=== PATIENT | male | born 1960 | race Caucasian/White ===

== ENCOUNTER → 2023-06-05 14:04 | Outpatient (REF) | payer OTHER, SELFPAY | LOC: MRI 3T 14:04 | PROVIDERS: ATTENDING PHYSICIAN Physical Medicine & Rehabilitation; FAMILY PHYSICIAN Family Medicine | DX: M54.16 Radiculopathy, lumbar region (principal) | CPT/HCPCS: 70030; 72148 ==

== ENCOUNTER 2024-04-28 13:36 | Inpatient (IN) | payer MEDICARE, SELFPAY ==
[2024-04-28 09:31] VITALS: BMI 35.4
[2024-04-28 09:32] VITALS: BP 186/108
--- NOTE | 2024-04-28 10:39 | ED.GENMED ---
History of Present Illness
General
Chief Complaint: Abdominal Pain
Source: patient
Exam Limitations: none
Time Seen by Provider: 04/28/24 10:27
History of Present Illness
History of Present Illness:
63-year-old male presents complaining of onset of epigastric abdominal pain with belching starting last evening. This is persistent and not going away. He has had similar attack of this in the past and typically goes away with antacids or Tums.
He has a known hiatal hernia. He is followed by GI. The pain does not radiate to the back. He denies chest pain. No shortness of breath. He notes last several bowel movements have been very light and almost white in color. He notes
dark-colored urine.
Phy Exam
Physical Exam
Physical Exam:
General: Well-appearing male no acute respiratory distress
HEENT: Normocephalic atraumatic
Heart: Regular rate and rhythm
Lungs: Clear no wheeze
Abdomen soft mild guarding tender to the epigastric and right upper quadrants. Positive Quiñonez sign normal bowel sounds nondistended
Skin: Slightly jaundiced.
Extremities: No cyanosis
Course
Orders/Labs/Results
Orders:
Orders
04/28/24 09:37
Electrocardiogram (*1) Urgent
Reason for Study: Chest Pain
EKG- Treatment ONCE
04/28/24 10:38
US Abdomen Complete/Upper Urgent
Comment:
Reason For Exam: RUQ pain
04/28/24 10:40
CMP [Comprehensive Metabolic Panel] Urgent
Complete Blood Count/With Diff Urgent
Lipase Urgent
Troponin I Urgent
Urinalysis Reflex To Culture Urgent
Date Specimen was Collected: 04/28/24
Time Specimen was Collected: 10:27
Urine Microscopic Reflex Cult Urgent
04/28/24 12:25
0.9% Sodium Chloride 1000 ml [Nss] 1,000 ml IV BOLUS
Ketorolac [Toradol] 15 mg IV NOW STA
Piperacillin/Tazo 3.375 Gram [Zosyn] 3.375 gram in 50 ml IV NOW
Abnormal Lab Results
04/28/24
10:40
WBC 13.5 H 10^3/uL
(4.8-10.8)
Abs Immat Gran (auto) 0.1 H 10^3/uL
(0-0.05)
Absolute Neuts (auto) 12.2 H 10^3/uL
(1.4-6.5)
Absolute Lymphs (auto) 0.5 L 10^3/uL
(1.2-3.4)
Absolute Monos (auto) 0.7 H 10^3/uL
(0.1-0.6)
Neutrophils % 90.6 H %
(42.2-75.2)
Lymphocytes % 3.9 L %
(20.5-51.1)
Sodium 133 L mmol/L
(135-145)
Chloride 95 L mmol/L
(98-107)
Glucose 147 H mg/dl
(70-99)
Total Bilirubin 2.9 H mg/dl
(0.2-1.3)
AST 108 H U/L
(17-59)
ALT 138 H U/L
(0-50)
Urine Ketones 2+ A
(Negative)
Ur Occult Blood Reflex 2+ A
(Negative)
Urine Bilirubin 1+ A
(Negative)
Urine RBC 7-10 A /HPF
(0-2)
Urine Glucose 1+ A
(Negative)
04/28/24 10:40
04/28/24 10:40
Vital Signs
Initial and Last Documented VS:
Initial Vital Signs
Temp Pulse Resp BP Pulse Ox
98 F 100 20 186/108 98
04/28/24 09:32 04/28/24 09:32 04/28/24 09:32 04/28/24 09:32 04/28/24 09:32
Last Documented Vital Signs
Temp Pulse Resp BP Pulse Ox
98 F 86 20 186/108 97
04/28/24 09:32 04/28/24 10:45 04/28/24 10:45 04/28/24 09:32 04/28/24 10:45
MDM/Problems Addressed
Differential Diagnosis Includes:
Abdominal pain. Gastritis vs biliary colic vs pancreatitis bowel obstruction and others
Check labs. Start with US. Consider CT if US is negative.
*Critical Care Note
Total Time (30-74mins, 75-104mins- exclusive of procedures): Not Applicable
Update Note
Update Note:
Ultrasound demonstrates 3 mm stone in the gallbladder. Labs reviewed white blood cell count 13.5 he has elevated liver functions with a total bilirubin of 2.9 ALT of 108 and AST of 138. Patient still uncomfortable. Toradol and fluids ordered
Zosyn ordered to cover. Will admit to hospitalist but notified GI and general surgery as well. Concern for cholecystitis versus cholangitis
EKG sinus rhythm with a rate of 94
. No ischemic changes.
ED Attending Note
-
Portions of this chart may have been created with voice recognition software.� Occasional wrong word or��sound alike� substitutions may have occurred due to the inherent limitations of voice recognition software.
Discharge Plan
Departure
Patient Disposition: Admit
Date of Disposition: 04/28/24
Time of Disposition: 12:27
Presentation/result/management discussed w/ accepting MD/DO: Hospitalist
Discharge Problem:
Cholelithiasis
Prescriptions:
No Action
amlodipine 10 MG tablet
10 mg PO DAILY
rosuvastatin 10 MG tablet
10 mg PO QPM
Referrals:
Sterling Jeffers DO [Family Provider] -
Interventions
Interventions:
*Risk Screen - Suicide Last Done: 04/28/24 09:32
*General Assessment Last Done: 04/28/24 09:32
*Neglect/Abuse Screening Last Done: 04/28/24 09:32
ED- Fall Risk Assessment Last Done: 04/28/24 10:50
*ED COVID-19 Vaccine History Last Done: 04/28/24 10:48
CV-Biopid-Xpuntonuol Assessment Last Done: 04/28/24 10:48
Discharge Date and Time
Print Language: CZECH
[2024-04-28 10:49] LABS: % Basophils 0.1 % (0-2); % Immature Granulocytes 0.4 % (0-0.5); % Lymphocytes 3.9 % (20.5-51.1); % Neutrophils 90.6 % (42.2-75.2); Absolute Immature Granulocytes 0.1 10^3/uL (0-0.05); Absolute Lymphocytes 0.5 10^3/uL (1.2-3.4); Absolute Monocytes 0.7 10^3/uL (0.1-0.6); Absolute Neutrophils 12.2 10^3/uL (1.4-6.5); Hemoglobin 15.1 g/dL (13.0-18.0); Mean Corp Hgb Conc. 34.3 g/dL (33.0-37.0); Mean Corpuscular Hgb 29.1 pg (27.0-31.0); Mean Corpuscular Volume 84.8 fL (80.0-94.0); Mean Platelet Volume 9.8 fL (7.4-10.4); Nucleated Red Blood Cells % 0 % (-); Platelet Count 220 10^3/uL (130-400); Red Blood Cell Count 5.19 10^6/uL (4.70-6.10); Red Cell Dist. Width 12.7 % (11.5-14.5); White Blood Cell Count 13.5 10^3/uL (4.8-10.8)
[2024-04-28 11:08] LABS: Urine Albumin Trace (Neg - Trace); Urine Bilirubin 1+ (Negative); Urine Character Clear (Clear); Urine Color Amber; Urine Glucose 1+ (Negative); Urine Ketone 2+ (Negative); Urine Leukocyte Negative (Negative); Urine Nitrite Negative (Negative); Urine Occult Blood 2+ (Negative); Urine Urobilinogen Negative (Neg - 1+)
[2024-04-28 11:17] LABS: ALT (SGPT) 138 U/L (0-50); AST (SGOT) 108 U/L (17-59); Albumin 4.7 g/dl (3.5-5.0); Alkaline Phosphatase 106 U/L (38-126); Blood Urea Nitrogen 14 mg/dl (9-20); Calcium 8.6 mg/dl (8.4-10.2); Carbon Dioxide 26 mmol/L (22-30); Chloride 95 mmol/L (98-107); Estimated Creatinine Clearance 106 ml/min; Glucose 147 mg/dl (70-99); Lipase 57 U/L (23-300); Potassium 3.9 mmol/L (3.5-5.1); Sodium 133 mmol/L (135-145); Total Bilirubin 2.9 mg/dl (0.2-1.3); Total Protein 7.8 g/dl (6.3-8.2); eGFR > 60.00
[2024-04-28 11:27] LABS: Troponin I < 0.012 ng/ml
[2024-04-28 11:41] LABS: Urine Squamous Cell 0-2 /LPF (Few); Urine White Cell 0-2 /HPF (0-5)
--- NOTE | 2024-04-28 12:43 | HPS.HSE ---
Family Physician
-
Family Physician: Sterling Jeffers
Chief Complaint
-
Abdominal Pain
History of Present Illness
Patient is a 63 y/o male past medical history of hypertension, hyperlipidemia and thyroid cancer s/p thyroidectomy who presents with abdominal pain. Patient reports pain started yesterday afternoon located mostly in the epigastric region. He
reports similar episodes of pain for which he would usually take an antacid with improvement, but this time pain did not improve and continued to worse. He reports associated nausea and vomiting. He reports subjective fevers of sweats and chills
at home.
Medical History
Past Medical History
Past Medical History: Reports Other
Additional Past Medical History:
Essential Hypertension
Hyperlipidemia
Thyroid Cancer
Past Surgical History: Reports Other
Additional Past Surgical History:
Left Total Knee Replacement
Total Thyroidectomy
Social History
Tobacco: Non-smoker
Alcohol: Occasional
Family History
Family History: Not pertinent
Allergies / Home Medications
Allergies reflects when Allergies were last updated in [facility].
Home Medications with original date entered in [facility]
Allergy/Medication List:
Allergies
Allergy/AdvReac Type Severity Reaction Status Date / Time
No Known Allergies Allergy Verified 04/28/24 09:36
Home Medications
amlodipine 5 mg tablet 5 mg PO QPM 04/28/24
celecoxib 200 mg capsule (Celebrex) 200 mg PO DAILYPRN PRN back pain 04/28/24
famotidine 20 mg tablet (Pepcid) 20 mg PO HSPRN PRN ACID REFLUX 04/28/24
levothyroxine 175 mcg tablet (Synthroid) 175 mcg PO DAILY 04/28/24
omeprazole 40 mg capsule,delayed release 40 mg PO DAILY 04/28/24
pravastatin 40 mg tablet 40 mg PO QPM 04/28/24
psyllium 1 packet PO DAILY 04/28/24
Review of Systems
-
A 12 point ROS was completed and negative except as noted: Yes
Constitutional: Reports Chills
Respiratory: Denies Cough or Trouble Breathing
Cardiac: Denies Chest Pain or Palpitations
Abdomen/GI: Reports See HPI
Physical Exam
Vital Signs
Vital Signs
Temp Pulse Resp BP Pulse Ox
98 F 86 20 186/108 97
04/28/24 09:32 04/28/24 10:45 04/28/24 10:45 04/28/24 09:32 04/28/24 10:45
Physical Exam
General: Comfortable and Conversant
HEENT: Moist mucous membranes and Other (Mild scleral icterus )
Respiratory: Clear and Non Labored Respirations
Cardiac: S1/S2 and Regular Rhythm
GI: Soft and Tender (RUQ without rebound or guarding)
Rectal: Deferred by Provider
Musculoskeletal: No Clubbing, No Cyanosis and No Edema
Skin: Warm, Dry and Jaundice
Neuro: Awake, Alert, Oriented and Nonfocal/grossly intact
Psych: Calm
Laboratory Results
-
04/28/24 10:40
04/28/24 10:40
Laboratory Results
Total Bilirubin 2.9 mg/dl (0.2-1.3) H 04/28/24 10:40
AST 108 U/L (17-59) H 04/28/24 10:40
ALT 138 U/L (0-50) H 04/28/24 10:40
Alkaline Phosphatase 106 U/L (38-126) 04/28/24 10:40
Troponin I < 0.012 ng/ml 04/28/24 10:40
Lipase 57 U/L (23-300) 04/28/24 10:40
Data Reviewed
-
Ultrasound: Report Reviewed by me
Lab Data: Labs Reviewed by me
Impression/Plan
-
Sepsis likely secondary to Choledocholithiasis / Ascending Cholangitis
-Consult General Surgery and Gastroenterology
-Trend LFTs - Consider MRI
-Check blood cultures
-Continue Zosyn
-Continue NPO/IVFs
-Continue anti-emetics and pain control
Essential Hypertension
-Continue amlodipine with hold parameters
Hyperlipidemia
-Hold statin
Hx Thyroid CA s/p Thyroidectomy
-Continue levothyroxine
DVT proph: SCDs
Code Status: Full Code
--- NOTE | 2024-04-28 12:46 | W.PN.UPDATE ---
Update Note
Progress Note Update
This is an addendum to the H&P written by Lashay Farias on 04/28/2024. Patient seen and examined independently with PA.
63-year-old male past medical history of hypertension, hyperlipidemia, hiatal hernia presenting with persistent epigastric abdominal pain with belching starting last evening. Patient has similar episodes previously which were typically resolves
with antacids. Has had several bowel movements right white-colored and dark-colored urine.
Patient hypertensive blood pressure 186/108.
Labs show leukocytosis as well as transaminitis with bilirubin of 2.9.
Abdominal ultrasound shows cholelithiasis with large calculi measuring up to 3 cm., diffuse fatty infiltration of the liver. Common bile duct measures 4.5 mm.
Concern for biliary colic and concurrent choledocholithiasis. Monitor LFTs. Pain control, n.p.o., IV fluids, Zosyn, GI, general surgery consulted. Consider MRCP.
[2024-04-28] MEDS: NSS 1000 IV ×2 (12:48→17:23)
[2024-04-28] MEDS: ZOSYN 50 IV ×2 (12:49→17:22)
[2024-04-28] MEDS: TORADOL 15 MG IV ×2 (12:49→21:35)
[2024-04-28 13:00] VITALS: BP 166/86
--- NOTE | 2024-04-28 13:30 | CON.GI ---
Addendum entered and electronically signed by Katharine Martinez DO 04/28/24 16:33:
The patient was seen and examined by me independently in collaboration with the nurse practitioner.
Past medical history/social history/medications/allergies/family history reviewed.
Lab data and imaging data reviewed.
Briefly, Daniel Arreaga is a 63 y.o. male w/ pmhc HLD, thyroid ca s/p thyroidectomy, TKR who presents with epigastric pain and eructation with subjective fever/chills. Labs demonstrate a leukocytosis of 13.5K and elevated LFTs, AST 108, ALT 138, alk
phos 106, Dbili 2.9. Abdominal US shows cholelithiasis w/o evidence of cholecystitis or choledocholithiasis; hepatic steatosis and 3.5 cm parapelvic renal cyst. He was started on zosyn. No documented fever since arrival. Of note, similar symptoms
intermittently over the last year, but also had associated diarrhea. He had initial improvement with PPI but sometimes required Gaviscon and tums for breakthrough symptoms.
Agree with plan as outlined below. Will await MRCP to evaluate for choledocho and if evidence of CBD stone will tentatively plan for ERCP tomorrow. If negative for choledocho, plan for lap taylor, timing per surgery.
Original Note:
Consultation
-
Date/Time Consultation Requested: 04/28/24 1245
Date/Time Consultation Performed: 04/28/24 1330
Requesting Provider: Michael Terry PA-C
Performing Provider: INGRID Engle, Isadora Martinez DO
Reason for Consultation: RUQ pain
Medical History
Chief Complaint / HPI
Chief Complaint: abdominal pain
History of Present Illness:
Pt is a 63yo with hx HTN, hyperlipidemia, thyroid Ca with thyroidectomy, TKR with onset of abdominal pain and belching. Pt also reports fever and chills with onset. On admission noted with WBC 13,500, bili 2.9, AST 108, ALT 138 alk phos 106.
04/28 US abdomen cholelithiasis, fatty infiltration of liver and 3.5 cm parapelvic renal cyst. In review with patient he has had similar symptoms for last year and a half but this was most severe episode. Episode occur at variable times of day
without a pattern. Now also noted with dark urine and dark urine. He typically will have improvement with Gaviscon or tums and though symptoms may be hiatal hernia related.
Past Medical History
Past Medical History: Cancer (thyroid CA), HTN and Hypercholesterolemia
Past Surgical History: Orthopedic (TKR) and Other (thyroidectomy)
Social History
Tobacco: Non-Smoker
Alcohol: Occasional (on weekends )
Drug: None
Personal:
Living: With Family
Employment: Employed
Family History
Family History: Other (no family hx GI issues )
Allergies / Home Medications
Allergy/AdvReac Type Severity Reaction Status Date / Time
No Known Allergies Allergy Verified 04/28/24 09:36
�Medication �Instructions �Recorded
amlodipine 5 mg tablet 5 mg PO QPM 04/28/24
celecoxib 200 mg capsule (Celebrex) 200 mg PO DAILYPRN PRN back pain 04/28/24
famotidine 20 mg tablet (Pepcid) 20 mg PO HSPRN PRN ACID REFLUX 04/28/24
levothyroxine 175 mcg tablet 175 mcg PO DAILY 04/28/24
(Synthroid)
omeprazole 40 mg capsule,delayed 40 mg PO DAILY 04/28/24
release
pravastatin 40 mg tablet 40 mg PO QPM 04/28/24
psyllium 1 packet PO DAILY 04/28/24
Review of Systems
-
History Source: Patient and Family
Constitutional: Reports No Symptoms
EENT: Reports No Symptoms
Respiratory: Reports No Symptoms
Cardiac: Reports Chest Pain
Abdomen/GI: Reports Abdominal Pain, Nausea, Vomiting and Other (bryant stool)
: Reports Dark Urine
Musculoskeletal: Reports No Symptoms
Skin: Reports No Symptoms
Neurological: Reports Weakness
Endocrine: Reports No Symptoms
Hematologic/Lymphatic: Reports No Symptoms
Vital Signs
Temp Pulse Resp BP Pulse Ox
98 F 86 15 166/86 97
04/28/24 09:32 04/28/24 13:00 04/28/24 13:08 04/28/24 13:00 04/28/24 13:00
Physical Exam
Exam
General: Well Developed, Well Nourished and No Apparent Distress
HEENT: Normocephalic and Anicteric
Respiratory: Clear
Cardiac: Regular Rhythm
GI: Soft, Non Distended and Tender (epigastric and left upper quadrant )
Musculoskeletal: No Clubbing and No Cyanosis
Skin: Warm and Dry
Neuro: Awake, Alert and AO x 3
Psych: Calm
Results
WBC 13.5 10^3/uL (4.8-10.8) H 04/28/24 10:40
Hgb 15.1 g/dL (13.0-18.0) 04/28/24 10:40
Hct 44.0 % (39.0-52.0) 04/28/24 10:40
MCV 84.8 fL (80.0-94.0) 04/28/24 10:40
Plt Count 220 10^3/uL (130-400) 04/28/24 10:40
Absolute Neuts (auto) 12.2 10^3/uL (1.4-6.5) H 04/28/24 10:40
Sodium 133 mmol/L (135-145) L 04/28/24 10:40
Potassium 3.9 mmol/L (3.5-5.1) 04/28/24 10:40
Chloride 95 mmol/L (98-107) L 04/28/24 10:40
Carbon Dioxide 26 mmol/L (22-30) 04/28/24 10:40
BUN 14 mg/dl (9-20) 04/28/24 10:40
Creatinine 0.9 mg/dL (0.7-1.3) 04/28/24 10:40
Calcium 8.6 mg/dl (8.4-10.2) 04/28/24 10:40
Total Bilirubin 2.9 mg/dl (0.2-1.3) H 04/28/24 10:40
AST 108 U/L (17-59) H 04/28/24 10:40
ALT 138 U/L (0-50) H 04/28/24 10:40
Alkaline Phosphatase 106 U/L (38-126) 04/28/24 10:40
Lipase 57 U/L (23-300) 04/28/24 10:40
Diagnostic Image Results:
04/28/24 US abdomen
Cholelithiasis
Diffuse fatty infiltration of the liver
3.5 cm left parapelvic renal cyst
Prior GI Procedures:
EGD: 01/2023- - Normal esophagus.
- Z-line irregular, 39 cm from the incisors. Biopsied.
- 1 cm hiatal hernia.
- Erythematous mucosa in the stomach. Biopsied.
- A few gastric polyps. Biopsied.
- Normal. Biopsied.
- Biopsies were taken with a cold forceps for
evaluation of eosinophilic esophagitis.
bx neg
Colonoscopy: 09/2018 - - Diverticulosis in the sigmoid colon and in the
descending colon.
- The examination was otherwise normal.
- No specimens collected.
Assessment / Plan
-
Pt is a 63yo with hx HTN, hyperlipidemia, thyroid Ca with thyroidectomy, TKR with onset of abdominal pain and belching. On admission noted with WBC 13,500, bili 2.9, AST 108, ALT 138 alk phos 106. 04/28 US abdomen cholelithiasis, fatty
infiltration of liver and 3.5 cm parapelvic renal cyst. Pt was noted with fever/chills prior to admission.
-epigastric abdominal pain
-increased LFT's
-leukocytosis/fever with concern for sepsis on admission
-cholelithiasis
other med problems:
-diverticulosis
-gastric polyp
-HTN
-hyperlipidemia
-thyroid CA with thyroidectomy
-HH
-TKR
PLAN:
etiology of abdominal pain with fever and LFT elevation related to biliary colic, CBD stone, vs other
US as noted
will check MRI with MRCP
for surgical eval
trend labs
blood cx pending to be done
cont abx
updated family at bedside
-
-
Thank you for consultation and allowing me to participate in the patient's care. Please call the environmental engineering professor GI physician during the after hours with any questions or concerns.
[2024-04-28 15:00] VITALS: BP 157/66
[2024-04-28 15:35] VITALS: BP 157/103; BMI 35.9
--- NOTE | 2024-04-28 15:38 | TRANSFER ---
Pt admitted to 317-1 from ED. Walked from stretcher to bed. AAOx3, accompanied by . NSS running, VSS, admission complete by this RN. No complaints at this time, call juarez within reach.
--- NOTE | 2024-04-28 16:23 | CON.GS ---
Medical History
-
Chief Complaint: Epigastric abdominal pain
History of Present Illness:
Patient is a 63 yo M with a PMH of obesity, GERD, HTN, HLD, thyroid cancer s/p total thyroidectomy with iodine radiation complicated by recurrence within the lymph nodes s/p lymphadenectomy, and s/p LEFT TKR who presents to the hospital with
epigastric abdominal pain. History Gibson states that his symptoms began Saturday afternoon. He noted a general unwell feeling as well as a mild fever. He also notes epigastric discomfort which worsened on Saturday. Symptoms progressed bring
presentation to the ED. He has had intermittent epigastric discomfort previously on an almost monthly basis which she is attributed to GERD related symptoms. This previous attacks would improve with Tums and Gaviscon. His current episode did not
improve with medical management. No nausea or vomiting. He does note pale stools and dark urine. Denies any jaundice. Family history notable for a mother and father postcholecystectomy.
Past Medical History
Past Medical History: Cancer (Thyroid cancer), GERD, HTN, Hypercholesterolemia and Other (Obesity)
Past Surgical History: Orthopedic (LEFT TKR) and Other (Total thyroidectomy and lymphadenectomy)
Social History
Tobacco: Non-Smoker
Alcohol: Occasional
Drug: None
Personal:
Living: With Family
Family History
Family History: Other (Mother and father postcholecystectomy)
Allergies / Home Medications
Allergy/AdvReac Type Severity Reaction Status Date / Time
No Known Allergies Allergy Verified 04/28/24 09:36
�Medication �Instructions �Recorded �Confirmed �Type
amlodipine 5 mg tablet 5 mg PO QPM Blood Pressure 04/28/24 04/28/24 History
celecoxib 200 mg capsule (Celebrex) 200 mg PO DAILYPRN PRN back pain 04/28/24 04/28/24 History
famotidine 20 mg tablet (Pepcid) 20 mg PO HSPRN PRN ACID REFLUX 04/28/24 04/28/24 History
levothyroxine 175 mcg tablet 175 mcg PO DAILY Thyroid 04/28/24 04/28/24 History
(Synthroid)
omeprazole 40 mg capsule,delayed 40 mg PO DAILY Gastrointestinal 04/28/24 04/28/24 History
release Issue
pravastatin 40 mg tablet 40 mg PO QPM High Cholesterol 04/28/24 04/28/24 History
psyllium 1 packet PO DAILY Constipation 04/28/24 04/28/24 History
Review of Systems
-
A 10 point review of systems was completed, and was negative except as per HPI.
Physical Exam
Vital Signs
Temp Pulse Resp BP Pulse Ox
98.0 F 99 18 157/103 98
04/28/24 15:35 04/28/24 15:35 04/28/24 15:35 04/28/24 15:35 04/28/24 15:35
04/27/24 04/28/24 04/29/24
06:59 06:59 06:59
Actual Weight 116.687 kg
Body Mass Index (BMI) 35.9
Lab Results
04/28/24 10:40
04/28/24 10:40
WBC 13.5 10^3/uL (4.8-10.8) H 04/28/24 10:40
Hgb 15.1 g/dL (13.0-18.0) 04/28/24 10:40
Hct 44.0 % (39.0-52.0) 04/28/24 10:40
Plt Count 220 10^3/uL (130-400) 04/28/24 10:40
Abs Immat Gran (auto) 0.1 10^3/uL (0-0.05) H 04/28/24 10:40
Neutrophils % 90.6 % (42.2-75.2) H 04/28/24 10:40
Physical Exam
General: Well Developed, Well Nourished and No Apparent Distress
HEENT: Scleral Icterus
Respiratory: Non Labored Respirations
Cardiac: Regular Rhythm
GI: Soft, Tender (Epigastric, negative Quiñonez's sign), Obese and Other ((No diffuse peritonitis)
Musculoskeletal: No Edema
Skin: Warm and Dry
Neuro: Nonfocal/Grossly Intact
Data Reviewed
-
Ultrasound: Image Personally Visualized and interpreted and Report Reviewed by me
Labs: Labs Reviewed by me
Assessment / Plan
-
Patient is a 63 yo M p/w likely choledocholithiasis
Natural history and pathophysiology of biliary and stone disease was discussed. Anatomy was reviewed utilizing pictorial images. Workup thus far including ultrasound and labs were reviewed. Role of cholecystectomy in preventing future episodes of
cholecystitis or choledocholithiasis was discussed. GI consult noted. MRI pending. Timing of cholecystectomy pending above-noted workup. All questions answered.
-- MRI abdomen
-- NPO, IVF
-- Abx: Zosyn
-- Timing of cholecystectomy TBD
[2024-04-28] MEDS: PRAVACHOL 40 MG PO (17:23)
[2024-04-28] MEDS: NORVASC 5 MG PO (17:24)
--- NOTE | 2024-04-28 18:41 | PTCARENOTE ---
pt received from ED with at bedside. Walked to bed with minimal assistance. AAOx3. VSS. Pt and very pleasant. NPO status at this time. Pt said last dose of toradol brought pain to a 06/22. Call juarez within reach, no complaints at this time.
[2024-04-28 23:00] VITALS: BP 138/83
[2024-04-29] MEDS: ZOSYN 50 IV ×5 (00:01→23:28)
[2024-04-29] MEDS: NSS 1000 IV ×3 (00:02→23:28)
[2024-04-29] MEDS: SYNTHROID 175 MCG PO (05:13)
[2024-04-29 07:01] LABS: Hematocrit 40.8 % (39.0-52.0); Hemoglobin 14.3 g/dL (13.0-18.0); Mean Corpuscular Hgb 29.4 pg (27.0-31.0); Mean Corpuscular Volume 83.8 fL (80.0-94.0); Mean Platelet Volume 9.7 fL (7.4-10.4); Platelet Count 204 10^3/uL (130-400); Red Blood Cell Count 4.87 10^6/uL (4.70-6.10); Red Cell Dist. Width 12.8 % (11.5-14.5); White Blood Cell Count 16.2 10^3/uL (4.8-10.8)
[2024-04-29 07:11] LABS: ALT (SGPT) 80 U/L (0-50); AST (SGOT) 46 U/L (17-59); Albumin 3.7 g/dl (3.5-5.0); Alkaline Phosphatase 90 U/L (38-126); Blood Urea Nitrogen 16 mg/dl (9-20); Calcium 8.2 mg/dl (8.4-10.2); Carbon Dioxide 20 mmol/L (22-30); Chloride 101 mmol/L (98-107); Estimated Creatinine Clearance 80 ml/min; Glucose 103 mg/dl (70-99); Magnesium 1.9 mg/dl (1.6-2.3); Potassium 3.5 mmol/L (3.5-5.1); Sodium 134 mmol/L (135-145); Total Bilirubin 3.3 mg/dl (0.2-1.3); Total Protein 6.5 g/dl (6.3-8.2); eGFR > 60.00
[2024-04-29 07:34] VITALS: BP 138/88
[2024-04-29] MEDS: PROTONIX 40 MG PO (08:11)
[2024-04-29 08:58] LABS: Glycohemoglobin (HgbA1c) 5.5 % (4.0-5.6)
--- NOTE | 2024-04-29 09:40 | W.PN.UPDATE ---
Update Note
Progress Note Update
Attempted to see pt, off floor for MRI
--- NOTE | 2024-04-29 10:28 | W.PN.HOSP.TC ---
Addendum entered and electronically signed by Reece Riojas MD 04/29/24 14:22:
Addendum
Hyponatremia, mild
MRI result reviewed, common bile duct filling defect. GI recommending ERCP prior to cholecystectomy. Continue with IV antibiotics for now.
End
Original Note:
Today's Communication/Plan
-
IV abx
IVF
MRI
f/w surgery recommendations for surgery
Assessment / Plan
Assessment / Plan
Physical Exam
General: Comfortable and Conversant
HEENT: Moist mucous membranes, no deformity.
Respiratory: Clear and Non Labored Respirations
Cardiac: S1/S2 and Regular Rhythm
GI: Soft and Tender (RUQ)
Rectal: No bleeding.
Musculoskeletal: No Clubbing, No Cyanosis and No Edema
Skin: Warm, Dry and Jaundice
Neuro: Awake, Alert, Oriented and Nonfocal/grossly intact
Psych: Calm
# Sepsis( leukocytosis, fever, tachycardia) secondary to Choledocholithiasis / Ascending Cholangitis
His pain is less with IV Abx
Liver enzymes are coming down, still with some discomfort and RUQ tenderness.
for MRI, talked to tech to facilitate it
-f/w blood cultures
-Continue Zosyn
-Continue NPO/IVFs
-Continue anti-emetics and pain control
Appreciate General Surgery and Gastroenterology
Essential Hypertension
-Continue amlodipine with hold parameters
Hyperlipidemia
-Hold statin
Hx Thyroid CA s/p Thyroidectomy
-Continue levothyroxine
DVT proph: SCDs
Code Status: Full Code
Total time spent to see the patient, examine the patient, review data and lab results, discuss treatment plan with patient, GI doctor, nursing staff around 55 minutes.
Anticipated Discharge: > 48 hours
Subjective/Interval History
-
Date of Service: April 29, 2024
less abdominal pain
conveyor tender RUQ of abdomen, no nausea
Objective Data
-
Labs:
Laboratory Results
04/29/24
06:13
WBC 16.2 H
Hgb 14.3
Hct 40.8
Plt Count 204
Sodium 134 L
Potassium 3.5
Chloride 101
Carbon Dioxide 20 L
BUN 16
Creatinine 1.2
Glucose 103 H
Calcium 8.2 L
Total Bilirubin 3.3 H
AST 46
ALT 80 H
Alkaline Phosphatase 90
Vital Signs:
Vital Signs
Temp Pulse Resp BP Pulse Ox
98.0 F 105 17 138/88 95
04/29/24 07:34 04/29/24 07:34 04/29/24 07:34 04/29/24 07:34 04/29/24 07:34
I&O
04/28/24 04/29/24 04/30/24
06:59 06:59 06:59
Intake Total 1580 / 1580
Balance 1580 / 1580
--- NOTE | 2024-04-29 10:46 | W.PN.GI.CBS2 ---
Addendum entered and electronically signed by Katharine Martinez DO 04/29/24 12:06:
The patient was seen and examined by me independently in collaboration with the nurse practitioner.
Past medical history/social history/medications/allergies/family history reviewed.
Lab data and imaging data reviewed.
Patient seen in follow-up, reports significant improvement in pain. MRI/MRCP completed following my exam which demonstrates numerous tiny filling defects within the mid to distal common bile duct spanning over approximately 3 cm in length,
consistent with choledocholithiasis as well as several stones in the neck including within GB neck with associated pericholecystic fluid, c/w acute cholecystitis. Worsening leukocytosis of 16K, afebrile and otherwise hemodynamically stable.
A/P:
-c/w antibiotics
-NPO
-Tentative plans for ERCP today-- pending available doctor to perform procedure
Original Note:
Today's Communication / Plan
-
etiology of abdominal pain with fever and LFT elevation related to biliary colic, CBD stone, vs other
and some rise in WBC with low grade fever overnight but pain with some improvement
US as noted
MRI with MRCP completed await result
cont NPO til reviewed
if + stone then ERCP- timing to be determined
appreciate surgical eval
trend labs-- till with elevated bili/ALT
blood cx pending
cont abx
Assessment / Plan
-
Pt is a 63yo with hx HTN, hyperlipidemia, thyroid Ca with thyroidectomy, TKR with onset of abdominal pain and belching. On admission noted with WBC 13,500, bili 2.9, AST 108, ALT 138 alk phos 106. 1/14 US abdomen cholelithiasis, fatty
infiltration of liver and 3.5 cm parapelvic renal cyst. Pt was noted with fever/chills prior to admission.
-epigastric abdominal pain
-increased LFT's
-leukocytosis/fever with concern for sepsis on admission
-cholelithiasis
other med problems:
-diverticulosis
-gastric polyp
-HTN
-hyperlipidemia
-thyroid CA with thyroidectomy
-HH
-TKR
PLAN:
etiology of abdominal pain with fever and LFT elevation related to biliary colic, CBD stone, vs other
and some rise in WBC with low grade fever overnight but pain with some improvement
US as noted
MRI with MRCP completed await result
cont NPO til reviewed
if + stone then ERCP- timing to be determined
appreciate surgical eval
trend labs-- till with elevated bili/ALT
blood cx pending
cont abx
Subjective
Subjective
Date of Service: April 29, 2024
T max 100.3 overnight, NPO, just completed MRI, pain improved but still noted with palpation
Objective
Data Reviewed
Laboratory Data:
Laboratory Results
04/29/24 06:13
04/29/24 06:13
Laboratory Results
Magnesium 1.9 mg/dl (1.6-2.3) 04/29/24 06:13
Total Bilirubin 3.3 mg/dl (0.2-1.3) H 04/29/24 06:13
AST 46 U/L (17-59) 04/29/24 06:13
ALT 80 U/L (0-50) H 04/29/24 06:13
Alkaline Phosphatase 90 U/L (38-126) 04/29/24 06:13
Lipase 57 U/L (23-300) 04/28/24 10:40
Vital Signs and I&O:
Vital Signs
Temp Pulse Resp BP Pulse Ox
98.0 F 105 17 138/88 95
04/29/24 07:34 04/29/24 07:34 04/29/24 07:34 04/29/24 07:34 04/29/24 07:34
I&O
04/28/24 04/29/2404/30/25
06:59 06:59 06:59
Intake Total 1579 / 1579
Balance 1579
Physical Exam
Physical Exam
HEENT: Other (mild jaundice )
Cardiology: Normal Sinus Rhythm
Pulmonary: Clear
GI: Soft, Tender (mild epigastric pain no guarding or rebound) and Other (large abdomen )
Extremities: No Edema
Neuro: Non Focal
--- NOTE | 2024-04-29 11:41 | W.PN.GS2 ---
Today's Communication / Plan
-
GI eval for possible EUS/ERCP
Assessment / Plan
-
63M with choledocholithiasis, possible concurrent ACC
Low grade fever and mild tachycardia, pain improved
WBC rising
Tbili rising
US with stones, no stigmata of ACC
MRI positive for chloledocholithiasis
Plan:
GI eval for possible EUS/ERCP
CCY discussed briefly with regard to prophylactic rationale, timing TBD
Pt is interested in surgery this admit
All other care as per primary team
GS will follow
Subjective Data
-
Date of Service: April 29, 2024
Tmax 100.3, HR 100s, reports clinical improvement weith resolution of pain
Objective Data
-
Intake and Output
04/28/24 04/29/24 04/30/24
06:59 06:59 06:59
Intake Total 1580 / 1580
Balance 1580 / 1580
Intake:
Oral fluids 80 / 80
IV fluids (Total) 1400 / 1400
IV piggybacks 100 / 100
Other:
Number of approximated MODERATE 5
amounts of urine
Vital Signs
Temp Pulse Resp BP Pulse Ox
98.0 F 105 17 138/88 95
04/29/24 07:34 04/29/24 07:34 04/29/24 07:34 04/29/24 07:34 04/29/24 07:34
Lab Results
04/29/24 06:13
04/29/24 06:13
Calcium 8.2 mg/dl (8.4-10.2) L 04/29/24 06:13
Magnesium 1.9 mg/dl (1.6-2.3) 04/29/24 06:13
Total Bilirubin 3.3 mg/dl (0.2-1.3) H 04/29/24 06:13
AST 46 U/L (17-59) 04/29/24 06:13
ALT 80 U/L (0-50) H 04/29/24 06:13
Alkaline Phosphatase 90 U/L (38-126) 04/29/24 06:13
Total Protein 6.5 g/dl (6.3-8.2) 04/29/24 06:13
Albumin 3.7 g/dl (3.5-5.0) 04/29/24 06:13
Physical Exam
-
Gen: NAD
bd: soft, moderate ttp to epigastrium/RUQ
Patient has a montenegro catheter: No
Patient has a central line: No
--- NOTE | 2024-04-29 13:50 | W.PN.UPDATE ---
Update Note
Progress Note Update
04/29/24- MRI with MRCP
Cholelithiasis and pericholecystic fluid. Acute cholecystitis not excluded in the appropriate clinical context.
Tiny filling defects within the mid to distal common bile duct in keeping with choledocholithiasis
reviewed with patient, , nursing staff and hospitalist plan for ERCP 04/30. reviewed risk/benefits all questions answered
[2024-04-29] MEDS: TYLENOL 650 MG PO ×2 (14:23→22:09)
[2024-04-29 14:35] VITALS: BP 169/86
[2024-04-29] MEDS: PRAVACHOL 40 MG PO (17:16)
[2024-04-29] MEDS: NORVASC 5 MG PO (17:16)
[2024-04-29 23:50] VITALS: BP 142/79
[2024-04-30] VITALS (7 sets, daily range): BP systolic 113–159; BP diastolic 72–88
[2024-04-30] MEDS: TYLENOL 650 MG PO (05:28)
[2024-04-30] MEDS: NSS 1000 IV ×2 (05:28→19:44)
[2024-04-30] MEDS: SYNTHROID 175 MCG PO (05:28)
[2024-04-30] MEDS: ZOSYN 50 IV ×4 (05:36→23:37)
[2024-04-30 06:48] LABS: Hematocrit 37.3 % (39.0-52.0); Mean Corp Hgb Conc. 34.9 g/dL (33.0-37.0); Mean Corpuscular Hgb 29.6 pg (27.0-31.0); Mean Platelet Volume 9.9 fL (7.4-10.4); Platelet Count 184 10^3/uL (130-400); Red Blood Cell Count 4.39 10^6/uL (4.70-6.10); Red Cell Dist. Width 12.8 % (11.5-14.5); White Blood Cell Count 13.4 10^3/uL (4.8-10.8)
[2024-04-30 08:00] LABS: ALT (SGPT) 53 U/L (0-50); AST (SGOT) 35 U/L (17-59); Albumin 3.2 g/dl (3.5-5.0); Alkaline Phosphatase 75 U/L (38-126); Blood Urea Nitrogen 19 mg/dl (9-20); Calcium 7.8 mg/dl (8.4-10.2); Carbon Dioxide 23 mmol/L (22-30); Chloride 102 mmol/L (98-107); Estimated Creatinine Clearance 87 ml/min; Glucose 91 mg/dl (70-99); Potassium 3.4 mmol/L (3.5-5.1); Sodium 136 mmol/L (135-145); Total Bilirubin 2.3 mg/dl (0.2-1.3); eGFR > 60.00
[2024-04-30] MEDS: PROTONIX 40 MG PO (08:03)
--- NOTE | 2024-04-30 09:10 | W.PN.GS2 ---
Today's Communication / Plan
-
`
Assessment / Plan
-
Assessment 63M with choledocholithiasis, Gallbladder with several gallstones including in the neck
Tmax 103, vital signs stable this a.m. and afebrile
Clinically stable
WBC a bit improved,T. bili slightly improved as well
US with stones, no stigmata of ACC
MRI positive for choledocholithiasis
Plan: Patient scheduled for ERCP today
Confirmed with patient indications for cholecystectomy. Patient in agreement to proceed with cholecystectomy at index hospitalization. Laparoscopic cholecystectomy with possible intraoperative cholangiogram is reviewed in detail the patient
including the operative technique, alternative treatment options, benefits and potential risk such as but not limited to bleeding, infectious or wound related complications, iatrogenic injury to surrounding structures, bile duct injury, bile leak.
Added patient onto the OR schedule for 05/01/2024; lap taylor with cholangiogram
Subjective Data
-
Date of Service: April 30, 2024
Patient seen and examined
Offers no complaints. Pain resolved. No nausea.
Awaiting ERCP today
Objective Data
-
Intake and Output
04/29/24 04/30/24 05/01/24
06:59 06:59 06:59
Intake Total 1580 / 1580 3535 / 3535
Balance 1580 / 1580 3535 / 3535
Intake:
Oral fluids 80 / 80 960 / 960
IV fluids (Total) 1400 / 1400 2375 / 2375
IV piggybacks 100 / 100 200 / 200
Other:
Number of approximated MODERATE 5 3
amounts of urine
Vital Signs
Temp Pulse Resp BP Pulse Ox
99.3 F 81 18 140/76 96
04/30/24 07:05 04/30/24 07:05 04/30/24 07:05 04/30/24 07:05 04/30/24 07:05
Lab Results
04/30/24 06:24
04/30/24 06:24
Calcium 7.8 mg/dl (8.4-10.2) L 04/30/24 06:24
Magnesium 1.9 mg/dl (1.6-2.3) 04/29/24 06:13
Total Bilirubin 2.3 mg/dl (0.2-1.3) H 04/30/24 06:24
AST 35 U/L (17-59) 04/30/24 06:24
ALT 53 U/L (0-50) H 04/30/24 06:24
Alkaline Phosphatase 75 U/L (38-126) 04/30/24 06:24
Total Protein 6.0 g/dl (6.3-8.2) L 04/30/24 06:24
Albumin 3.2 g/dl (3.5-5.0) L 04/30/24 06:24
Physical Exam
-
NAD AAOx3
ABD: Softly protuberant, nondistended, nontender
--- NOTE | 2024-04-30 12:34 | W.PN.HOSP.TC ---
Today's Communication/Plan
-
Continue Zosyn
Clear liquid diet today
Cholecystectomy per surgery
Assessment / Plan
Assessment / Plan
# Sepsis( leukocytosis, fever, tachycardia) secondary to Choledocholithiasis / Ascending Cholangitis
# Probable acute cholecystitis
MRI abdomen findings noted
S/p ERCP this morning with the sphincterotomy and balloon sweep of the CBD for the stones. Mention about identification of past during ERCP noted. Continue with Zosyn
-Non bacteremic
-Continue anti-emetics and pain control
Appreciate General Surgery and Gastroenterology
-Plan for cholecystectomy noted
Essential Hypertension
-Continue amlodipine with hold parameters
Hyperlipidemia
-Hold statin
Hx Thyroid CA s/p Thyroidectomy
-Continue levothyroxine
DVT proph: SCDs
Code Status: Full Code
Anticipated Discharge: 24 - 48 hours
Subjective/Interval History
-
Date of Service: April 30, 2024
Back from ERCP. Feels abdominal pain is better. On clear liquid diet.
No fever or chills.
Objective Data
-
Labs:
Laboratory Results
04/30/24
06:24
WBC 13.4 H
Hgb 13.0
Hct 37.3 L
Plt Count 184
Sodium 136
Potassium 3.4 L
Chloride 102
Carbon Dioxide 23
BUN 19
Creatinine 1.1
Glucose 91
Calcium 7.8 L
Total Bilirubin 2.3 H
AST 35
ALT 53 H
Alkaline Phosphatase 75
Vital Signs:
Vital Signs
Temp Pulse Resp BP Pulse Ox
98.5 F 75 15 120/77 97
04/30/24 10:55 04/30/24 10:55 04/30/24 10:55 04/30/24 10:55 04/30/24 10:55
I&O
04/29/24 04/30/24 05/01/24
06:59 06:59 06:59
Intake Total 1580 / 1580 3534 / 3534
Balance 1580 / 1580 3534 / 3534
Review of Systems
-
Constitutional: Denies Fever or Chills
Respiratory: Denies Trouble Breathing
Cardiac: Denies Chest Pain
Neuro: Denies Dizzy
Physical Exam
-
General: No Apparent Distress
HEENT: Moist Mucous Membranes
Respiratory: Clear to Auscultation
Cardiac: Regular Rhythm and S1/S2
GI: Soft, Nondistended, Normal Bowel Sounds and Tender (Mild discomfort in the right upper quadrant area)
Neuro: AO x 3
Data Reviewed
-
Labs: Labs Reviewed by me
[2024-04-30] MEDS: NSS IV (16:31)
[2024-04-30] MEDS: NORVASC 5 MG PO (17:22)
[2024-04-30] MEDS: PRAVACHOL 40 MG PO (17:22)
[2024-05-01] VITALS (14 sets, daily range): BP systolic 1–144; BP diastolic 34–77; BMI 35.9
[2024-05-01] MEDS: NSS 1000 IV ×2 (04:26→19:30)
[2024-05-01] MEDS: SYNTHROID 175 MCG PO (06:20)
[2024-05-01] MEDS: ZOSYN 50 IV ×4 (06:20→23:56)
--- NOTE | 2024-05-01 06:43 | PTCARENOTE ---
Pt cleansed w/bathing wipes, used 1st set of CHG cloths, gown and linens changed.
[2024-05-01 06:58] LABS: Hematocrit 35.3 % (39.0-52.0); Hemoglobin 12.5 g/dL (13.0-18.0); Mean Corp Hgb Conc. 35.4 g/dL (33.0-37.0); Mean Corpuscular Hgb 29.7 pg (27.0-31.0); Mean Corpuscular Volume 83.8 fL (80.0-94.0); Mean Platelet Volume 10.3 fL (7.4-10.4); Platelet Count 193 10^3/uL (130-400); Red Blood Cell Count 4.21 10^6/uL (4.70-6.10); Red Cell Dist. Width 12.5 % (11.5-14.5); White Blood Cell Count 13.8 10^3/uL (4.8-10.8)
[2024-05-01 07:34] LABS: ALT (SGPT) 54 U/L (0-50); AST (SGOT) 38 U/L (17-59); Albumin 3.1 g/dl (3.5-5.0); Alkaline Phosphatase 90 U/L (38-126); Blood Urea Nitrogen 18 mg/dl (9-20); Calcium 7.8 mg/dl (8.4-10.2); Carbon Dioxide 24 mmol/L (22-30); Chloride 103 mmol/L (98-107); Estimated Creatinine Clearance 120 ml/min; Glucose 135 mg/dl (70-99); Potassium 3.7 mmol/L (3.5-5.1); Sodium 136 mmol/L (135-145); Total Bilirubin 1.1 mg/dl (0.2-1.3); Total Protein 5.9 g/dl (6.3-8.2); eGFR > 60.00
[2024-05-01] MEDS: PROTONIX 40 MG PO (07:35)
--- NOTE | 2024-05-01 09:37 | W.PN.HOSP.TC ---
Today's Communication/Plan
-
Per lap cholecystectomy today.
Continue with Zosyn
Assessment / Plan
Assessment / Plan
# Sepsis( leukocytosis, fever, tachycardia) secondary to Choledocholithiasis / Ascending Cholangitis
# Probable acute cholecystitis
MRI abdomen findings noted
S/p ERCP 04/30 and had sphincterotomy and balloon sweep of the CBD for the stones. Mention about identification of pus during ERCP noted. Continue with Zosyn. Today patient with improved symptoms. Improved LFTs.
-Non bacteremic
-Plan for cholecystectomy today noted
Appreciate General Surgery and Gastroenterology
Essential Hypertension
-Continue amlodipine with hold parameters
Hyperlipidemia
-Hold statin
Hx Thyroid CA s/p Thyroidectomy
-Continue levothyroxine
DVT proph: SCDs
Code Status: Full Code
Anticipated Discharge: Within 24 hours
Subjective/Interval History
-
Date of Service: May 01, 2024
Since ERCP he feels much better in general as well as decreased abdominal pain. No nausea vomiting. No fever chills.
Objective Data
-
Labs:
Laboratory Results
05/01/24
06:41
WBC 13.8 H
Hgb 12.5 L
Hct 35.3 L
Plt Count 193
Sodium 136
Potassium 3.7
Chloride 103
Carbon Dioxide 24
BUN 18
Creatinine 0.8
Glucose 135 H
Calcium 7.8 L
Total Bilirubin 1.1 D
AST 38
ALT 54 H
Alkaline Phosphatase 90
Vital Signs:
Vital Signs
Temp Pulse Resp BP Pulse Ox
97.9 F 67 17 159/87 96
04/30/24 23:36 04/30/24 23:36 04/30/24 23:36 04/30/24 23:36 04/30/24 23:36
I&O
04/30/24 05/01/24 05/02/24
06:59 06:59 06:59
Intake Total 3534
Balance 3534
Review of Systems
-
EENT: Denies Sore Throat
Respiratory: Denies Cough or Trouble Breathing
Cardiac: Denies Chest Pain or Palpitations
Neuro: Denies Dizzy
Physical Exam
-
General: No Apparent Distress
HEENT: Moist Mucous Membranes
Respiratory: Clear to Auscultation and Non Labored Respirations; Negative Accessory Resp Muscle Use
Cardiac: Regular Rhythm and S1/S2
GI: Soft, Nondistended, Normal Bowel Sounds and Tender (Mild discomfort in the right upper quadrant but no rebound guarding rigidity)
Neuro: AO x 3
Data Reviewed
-
Labs: Labs Reviewed by me
--- NOTE | 2024-05-01 11:18 | CM ---
Met with patient and spouse at bedside; initial assessment completed
Pharmacy verified: [facility] [address]
Patient and spouse live in a multilevel home; no steps to enter; 14 steps to 2nd floor bath; railing present; powder room 1st floor
PLOF: reported he is independent with ambulation, stairs, ADLs; Works computing architect; Drives
will transport home
No SNF utilization history; no recent home health services
Plan: Scheduled for invasive procedure in OR today. Anticipate that patient will go home later today or tomorrow; CM will monitor for needs
[2024-05-01] MEDS: NSS IV (13:26)
--- NOTE | 2024-05-01 14:01 | W.SUR.PREOP ---
Pre-Operative Surgical Note
-
I have examined this patient prior to the performance of the scheduled procedure.
The patient's condition is unchanged from the time of the current History and
Physical and the patient is able to undergo the scheduled procedure.
--- NOTE | 2024-05-01 14:01 | W.PN.GS2 ---
Today's Communication / Plan
-
-- Laparoscopic cholecystectomy with possible IOC
Assessment / Plan
-
Assessment 63M with choledocholithiasis, Gallbladder with several gallstones including in the neck
Afebrile vital signs stable
Labs trending down
US with stones, no stigmata of ACC
MRI positive for choledocholithiasis
PPD#1 s/p ERCP with stone extraction and purulence noted within CBD
Plan for laparoscopic cholecystectomy with possible cholangiogram to prevent future episodes of cholecystitis or choledocholithiasis. The procedure itself, as well as the risks, benefits, and alternatives was discussed. Specifically, we discussed
the risks of bleeding, infection, injury to surrounding structures (bowel, bile ducts), CBD injury, need for open procedure. Typical postprocedural recovery was discussed. All questions answered. Consent signed.
Plan:
-- Laparoscopic cholecystectomy with possible IOC
-- NPO, IVF
-- Antibiotics: Zosyn
Subjective Data
-
Date of Service: May 01, 2024
Please improve post ERCP. Pain tolerable. No nausea or vomiting. No fevers.
Objective Data
-
Intake and Output
04/30/24 05/01/24 05/02/24
06:59 06:59 06:59
Intake Total 3535 / 3535 2580 / 2580
Balance 3535 / 3535 2580 / 2580
Intake:
Oral fluids 960 / 960 1380 / 1380
IV fluids (Total) 2375 / 2375 1100 / 1100
IV piggybacks 200 / 200 100 / 100
Other:
Number of approximated MODERATE 3 3
amounts of urine
Vital Signs
Temp Pulse Resp BP Pulse Ox
97.8 F 61 14 144/73 99
05/01/24 08:00 05/01/24 08:00 05/01/24 08:00 05/01/24 08:00 05/01/24 08:00
Lab Results
05/01/24 06:41
05/01/24 06:41
Calcium 7.8 mg/dl (8.4-10.2) L 05/01/24 06:41
Magnesium 1.9 mg/dl (1.6-2.3) 04/29/24 06:13
Total Bilirubin 1.1 mg/dl (0.2-1.3) D 05/01/24 06:41
AST 38 U/L (17-59) 05/01/24 06:41
ALT 54 U/L (0-50) H 05/01/24 06:41
Alkaline Phosphatase 90 U/L (38-126) 05/01/24 06:41
Total Protein 5.9 g/dl (6.3-8.2) L 05/01/24 06:41
Albumin 3.1 g/dl (3.5-5.0) L 05/01/24 06:41
Physical Exam
-
Gen: NAD
Abd: soft, mild tenderness, ND/obese, non-peritoneal
Patient has a monten[place]ro catheter: No
Patient has a central line: No
--- NOTE | 2024-05-01 17:44 | W.IMMPOSTOP ---
Surgical Immed Post Op Note
-
Primary Surgeon: Hayley
Assisting Surgeon: ELIN Mclaughlin
Pre-op Diagnosis: Choledocholithiasis
Post-op Diagnosis: Chronic cholecystitis
Procedure Performed: Laparoscopic cholecystectomy with IOC
Anesthesia Type: General
Specimen / Cultures:
1. Gallbladder
Estimated Blood Loss: 51 cc
Complications: None
Operative Findings:
1. Severe chronic inflammation, impacted stones at neck, dense adhesions in this region, purulent bile, black stones
2. Artery identified and clipped, duct clearly identified
3. IOC with anatomy confirmed and no filling defects
4. 19 Fr JARED into operative field
Plan:
-- Abx: Zosyn/Augmentin for 7 days post-op
-- JARED drain for two days (can remove in the office in Saturday if DC tomorrow)
[2024-05-01] MEDS: DILAUDID 0.5 MG IV ×2 (19:15→23:55)
[2024-05-01] MEDS: NORVASC 5 MG PO (19:54)
[2024-05-01] MEDS: PRAVACHOL 40 MG PO (19:54)
[2024-05-02] MEDS: NSS 1000 IV (04:42)
[2024-05-02] MEDS: DILAUDID 0.5 MG IV (04:43)
[2024-05-02] MEDS: SYNTHROID 175 MCG PO (06:19)
[2024-05-02] MEDS: ZOSYN 50 IV ×2 (06:20→12:14)
[2024-05-02 07:00] VITALS: BP 143/78
[2024-05-02 07:21] LABS: Hematocrit 33.6 % (39.0-52.0); Hemoglobin 11.5 g/dL (13.0-18.0); Mean Corp Hgb Conc. 34.2 g/dL (33.0-37.0); Mean Corpuscular Hgb 29.5 pg (27.0-31.0); Mean Corpuscular Volume 86.2 fL (80.0-94.0); Mean Platelet Volume 10.5 fL (7.4-10.4); Platelet Count 236 10^3/uL (130-400); White Blood Cell Count 14.3 10^3/uL (4.8-10.8)
[2024-05-02 07:32] LABS: ALT (SGPT) 86 U/L (0-50); AST (SGOT) 92 U/L (17-59); Alkaline Phosphatase 80 U/L (38-126); Blood Urea Nitrogen 18 mg/dl (9-20); Calcium 7.1 mg/dl (8.4-10.2); Carbon Dioxide 27 mmol/L (22-30); Chloride 102 mmol/L (98-107); Estimated Creatinine Clearance 120 ml/min; Glucose 114 mg/dl (70-99); Sodium 136 mmol/L (135-145); Total Protein 5.6 g/dl (6.3-8.2); eGFR > 60.00
[2024-05-02 07:38] LABS: Potassium 3.8 mmol/L (3.5-5.1)
[2024-05-02] MEDS: PROTONIX 40 MG PO (08:22)
--- NOTE | 2024-05-02 10:00 | W.PN.GI.CBS2 ---
Today's Communication / Plan
-
s/p lap taylor and IOC negative
Had ERCP stone removal day prior
Will sign off.
Assessment / Plan
-
Pt is a 63yo with hx HTN, hyperlipidemia, thyroid Ca with thyroidectomy, TKR with onset of abdominal pain and belching. On admission noted with WBC 13,500, bili 2.9, AST 108, ALT 138 alk phos 106. 1/14 US abdomen cholelithiasis, fatty
infiltration of liver and 3.5 cm parapelvic renal cyst. Pt was noted with fever/chills prior to admission.
-epigastric abdominal pain
-increased LFT's
-leukocytosis/fever with concern for sepsis on admission
-cholelithiasis
other med problems:
-diverticulosis
-gastric polyp
-HTN
-hyperlipidemia
-thyroid CA with thyroidectomy
-HH
-TKR
Subjective
Subjective
Date of Service: May 02, 2024
c/o RUQ pain POD #1
Objective
Data Reviewed
Laboratory Data:
Laboratory Results
05/02/24 06:21
05/02/24 06:21
Laboratory Results
Magnesium 1.9 mg/dl (1.6-2.3) 04/29/24 06:13
Total Bilirubin 1.0 mg/dl (0.2-1.3) 05/02/24 06:21
AST 92 U/L (17-59) H 05/02/24 06:21
ALT 86 U/L (0-50) H 05/02/24 06:21
Alkaline Phosphatase 80 U/L (38-126) 05/02/24 06:21
Lipase 57 U/L (23-300) 04/28/24 10:40
Vital Signs and I&O:
Vital Signs
Temp Pulse Resp BP Pulse Ox
98.2 F 65 18 143/78 98
05/02/24 07:00 05/02/24 07:00 05/02/24 07:00 05/02/24 07:00 05/02/24 07:00
I&O
05/01/24 05/02/24 05/03/24
06:59 06:59 06:59
Intake Total 2580 / 2580 480 / 480
Output Total 61 / 61
Balance 2580 / 2580 419 / 419
Physical Exam
Physical Exam
GI: Soft, Non Distended and Tender (mild RUQ, bandage dry)
--- NOTE | 2024-05-02 12:05 | W.PN.GS2 ---
Addendum entered and electronically signed by Louis Mackay MD 05/02/24 15:05:
Patient seen and examined in follow-up with surgical [employer] AIDE.
Patient's at bedside.
Overall doing well. Initial postoperative distention and tightness improved this afternoon.
Tolerating dietary advancement.
Bowel movement earlier today.
AFVSS
NAD AAOx3
ABD: Softly distended/protuberant. Tenderness on palpation only at incision sites. Incisions with glue dressings.
JARED light serosanguineous fluid
A/P: POD #1 status post lap taylor with acute on chronic cholecystitis
DC home with JARED
7-day postop course of antibiotics -Augmentin
Outpatient follow-up with Dr. Hardy next week for drain check/removal
Original Note:
Today's Communication / Plan
-
dispo planning
Assessment / Plan
-
Assessment 63M with choledocholithiasis, Gallbladder with several gallstones including in the neck
Afebrile vital signs stable
Labs trending down
US with stones, no stigmata of ACC
MRI positive for choledocholithiasis
Bilirubin normalized, mild transaminates (expected)
PPD#2 s/p ERCP with stone extraction and purulence noted within CBD
POD #1 lap taylor with chronic cholecystitis noted intraop. IOC with anatomy confirmed and no filling defects. Drain left in place.
Plan:
-- Continue current diet
-- Continue JARED drain for 2 days minimum. Ok to d/c home with drain in place, for discontinuation as an outpatient.
-- Analgesics prn
-- Antibiotics: Zosyn. Would transition to PO upon discharge with Augmentin, continue x 7 days total post op.
Subjective Data
-
Date of Service: May 02, 2024
Patient seen and examined at bedside with Dr. Mackay. Some discomfort at incisions and RUQ but better after toradol. Denies n/v. Tolerating diet. Eager to go home.
Objective Data
-
Intake and Output
05/01/24 05/02/24 05/03/24
06:59 06:59 06:59
Intake Total 2580 / 2580 480 / 480
Output Total
Balance 2580 / 2580 419 / 419
Intake:
Oral fluids 1380 / 1380 480 / 480
IV fluids (Total) 1100 / 1100
IV piggybacks 100 / 100
Output:
Drain Output (Total)
Right Lower Abdomen Julio Cesar-
[place]
Other:
Number of approximated MODERATE 3 3
amounts of urine
Vital Signs
Temp Pulse Resp BP Pulse Ox
98.2 F 65 18 143/78 98
05/02/24 07:00 05/02/24 07:00 05/02/24 07:00 05/02/24 07:00 05/02/24 07:00
Lab Results
05/02/24 06:21
05/02/24 06:21
Calcium 7.1 mg/dl (8.4-10.2) L 05/02/24 06:21
Magnesium 1.9 mg/dl (1.6-2.3) 04/29/24 06:13
Total Bilirubin 1.0 mg/dl (0.2-1.3) 05/02/24 06:21
AST 92 U/L (17-59) H 05/02/24 06:21
ALT 86 U/L (0-50) H 05/02/24 06:21
Alkaline Phosphatase 80 U/L (38-126) 05/02/24 06:21
Total Protein 5.6 g/dl (6.3-8.2) L 05/02/24 06:21
Albumin 3.0 g/dl (3.5-5.0) L 05/02/24 06:21
Physical Exam
-
NAD
ABD soft, nd, obese, minimal incisional tenderness
Incisions well approximated, intact glue
Patient has a monten[place]ro catheter: No
Patient has a central line: No
[2024-05-02] MEDS: TORADOL 15 MG IV (12:15)
--- NOTE | 2024-05-02 12:29 | W.PN.HOSP.TC ---
Today's Communication/Plan
-
CW ABX
Assessment / Plan
Assessment / Plan
# Sepsis( leukocytosis, fever, tachycardia) secondary to Choledocholithiasis / Ascending Cholangitis
# Acute cholecystitis
MRI abdomen findings noted
S/p ERCP 04/30 and had sphincterotomy and balloon sweep of the CBD for the stones. Mention about identification of pus during ERCP noted. Continue with Zosyn. Today patient with improved symptoms. Improved LFTs.
-Non bacteremic
- s/p lap cholecystectomy -findings noted - drain in place. CW ABX
-Diet per surgery
Appreciate General Surgery and Gastroenterology
Essential Hypertension
-Continue amlodipine with hold parameters
Hyperlipidemia
-Hold statin
Hx Thyroid CA s/p Thyroidectomy
-Continue levothyroxine
DVT proph: SCDs
Code Status: Full Code
DC hoome when ok from surgical standpoint
Anticipated Discharge: Within 24 hours
Subjective/Interval History
-
Date of Service: May 02, 2024
No overnight events.
Able to have some solid diet without nausea vomiting. He does feel bloated and pressure in the right upper quadrant but not necessarily pain.
Objective Data
-
Labs:
Laboratory Results
05/02/24
06:21
WBC 14.3 H
Hgb 11.5 L
Hct 33.6 L
Plt Count 236 D
Sodium 136
Potassium 3.8
Chloride 102
Carbon Dioxide 27
BUN 18
Creatinine 0.8
Glucose 114 H
Calcium 7.1 L
Total Bilirubin 1.0
AST 92 H
ALT 86 H
Alkaline Phosphatase 80
Vital Signs:
Vital Signs
Temp Pulse Resp BP Pulse Ox
98.2 F 65 18 143/78 98
05/02/24 07:00 05/02/24 07:00 05/02/24 07:00 05/02/24 07:00 05/02/24 07:00
I&O
05/01/24 05/02/24 05/03/24
06:59 06:59 06:59
Intake Total 2580 / 2580 480 / 480
Output Total 61 / 61
Balance 2580 / 2580 419 / 419
Review of Systems
-
Constitutional: Denies Fever
Respiratory: Denies Trouble Breathing
Cardiac: Denies Chest Pain
Abdomen/GI: Denies Nausea or Vomiting
Neuro: Denies Dizzy
Physical Exam
-
Respiratory: Non Labored Respirations; Negative Accessory Resp Muscle Use
Cardiac: Regular Rhythm and S1/S2
GI: Soft, Nondistended, Normal Bowel Sounds and Tender (Discomfort in the right upper quadrant)
Neuro: AO x 3
Psych: Calm
Data Reviewed
-
Labs: Labs Reviewed by me
[2024-05-02 15:00] VITALS: BP 152/77
--- NOTE | 2024-05-02 15:54 | W.DCSUMMARY ---
Discharge Summary
Discharge Data
Date of Admission: 04/28/24
Date of Discharge: 05/02/24
-
Pending Results: No
Hospital Course
Primary diagnosis:
Sepsis
Choledocholithiasis/ascending colitis
Acute cholecystitis
Secondary diagnosis:
Essential hypertension
Hyperlipidemia
History of thyroid cancer status post thyroidectomy
Hospital course:
Patient presented with persistent epigastric abdominal pain. He had similar episodes in the past which resolved with antacids. Further evaluation revealed choledocholithiasis and there was a concern of ascending cholangitis. He was septic on
presentation per parameters. There is also a imaging concern of acute cholecystitis.
MRI of the abdomen showed -cholelithiasis and pericholecystic fluid. Acute cholecystitis not excluded in the appropriate clinical context.Tiny filling defects within the mid to distal common bile duct in keeping with choledocholithiasis.
He had ERCP and complete removal of choledocholithiasis by biliary sphincterotomy and balloon extraction.
He went on to have laparoscopic cholecystectomy which showed severe chronic inflammation, impacted stones of the neck, dense addition of the region, purulent bile, black stones. He was initially put on Zosyn which was switched to oral Augmentin on
discharge due to his significant inflammation of the gallbladder. He was not bacteremic.
Once he was tolerating oral diet he was discharged home with his JARED drain which will possibly be discontinued on Saturday. He was given postcholecystectomy instruction by surgery prior to dc.
Consultants on board:
GI-Nabor Alvarez
General Surgery-Luis Fernando Plata
Discharge Plan
-
Patient Disposition: Home (Routine Discharge)
Discharge Diagnosis/Procedures: Sepsis secondary to choledocholithiasis/ascending colitis and acute cholecystitis -laparoscopic cholecystectomy and ERCP
Condition: Good
Diet: As tolerated
Additional Diets: If you have loose stools or bloating after surgery switch to a low fat diet
Activity: No strenuous activity
Additional Activity: Do not lift over 15 lbs for 2-3 weeks after surgery
Driving Restrictions: No driving for 24 hours
Bathing Restrictions: OK to Shower
Wound Care: Empty drain twice a day and as needed. Cover with a clean gauze dressing and change daily. Ok to remove dressing for shower. Do not soak in a tub or pool.
Activity Restrictions/Additional Instructions:
If you have nausea with vomiting, fevers >100.5 or worsening pain after surgery, please call your surgeon to discuss
Instructions: How to care for a closed suction drain
Referrals:
Luis Fernando Hardy MD [Active] - 05/04/24 (Please call on Saturday to set up a time to remove your drain)
Sterling Jeffers DO [Family Provider] -
Prescriptions:
New
acetaminophen [acetaminophen] 325 mg tablet
650 mg PO Q4HPRN PRN (Reason: mild pain) Qty: 1 0RF
amoxicillin-pot clavulanate 875-125 mg tablet
1 tab PO Q12 Qty: 12 0RF
oxycodone 5 mg tablet
5 mg PO Q4HPRN PRN (Reason: breakthrough/severe pain) Qty: 5 0RF
Continued
celecoxib [Celebrex] 200 mg Capsule
200 mg PO DAILYPRN PRN (Reason: back pain)
levothyroxine [Synthroid] 175 mcg tablet
175 mcg PO DAILY
pravastatin 40 mg tablet
40 mg PO QPM
psyllium Packet
1 packet PO DAILY
amlodipine 5 mg tablet
5 mg PO QPM
omeprazole 40 mg capsule,delayed release(DR/EC)
40 mg PO DAILY
famotidine [Pepcid] 20 mg Tablet
20 mg PO HSPRN PRN (Reason: ACID REFLUX)
Discharge Orders:
Discharge Patient (As Directed); Ordered 05/02/24
Ordered By: Miles Leiva
Discharge Date and Time
Print Language: DANISH
== END 2024-05-02 16:07 | disposition home or self-care (01) | DRG 872 ==
LOC: 3 WEST ACU 13:36
PROVIDERS: Internal Medicine; Internal Medicine Gastroenterology; Physician Assistant; Physician Assistant Medical; ADMITTING PHYSICIAN Hospitalist; ATTENDING PHYSICIAN Internal Medicine; CONSULT PHYSICIAN Internal Medicine; CONSULT PHYSICIAN Surgery; EMERGENCY PHYSICIAN Emergency Medicine; FAMILY PHYSICIAN Family Medicine
PROC: BF141ZZ Fluoroscopy of Gallbladder, Bile Ducts and Pancreatic Ducts using Low Osmolar Contrast (ICD-10-PCS; 2024-04-30)
PROC: 0DB58ZX Excision of Esophagus, Via Natural or Artificial Opening Endoscopic, Diagnostic (ICD-10-PCS; 2024-04-30)
PROC: 0FC98ZZ Extirpation of Matter from Common Bile Duct, Via Natural or Artificial Opening Endoscopic (ICD-10-PCS; 2024-04-30)
PROC: 0DB68ZX Excision of Stomach, Via Natural or Artificial Opening Endoscopic, Diagnostic (ICD-10-PCS; 2024-04-30)
DX: A41.9 Sepsis, unspecified organism (principal); K80.63 Calculus of gallbladder and bile duct with acute cholecystitis with obstruction; K52.9 Noninfective gastroenteritis and colitis, unspecified; I10 Essential (primary) hypertension; Z85.850 Personal history of malignant neoplasm of thyroid; K31.7 Polyp of stomach and duodenum; K44.9 Diaphragmatic hernia without obstruction or gangrene
CPT/HCPCS: 88304; 74183; 74300; 74330; 76000; 76700; 80053; 81003; 81015; 83036; 83690; 83735; 84484; 85025; 85027; 87040; 93005; 96365; 96375; 99285; A4300; A9575; C1769